=== PATIENT | female | born 1980 | race Caucasian/White ===

== ENCOUNTER → 2019-04-18 08:29 | Outpatient (CLI) | payer OTHER, SELFPAY ==
--- NOTE | ~2019-04-18 | US_ITS ---
EXAMINATION: US abdomen limited DATE: 04/18/2019 08:49 INDICATION: Right upper quadrant abdominal pain. TECHNIQUE: Multiple grayscale and Doppler ultrasound images of the abdomen were obtained. COMPARISON: None FINDINGS: The visualized portions of the head, body, and tail of the pancreas are normal. The liver i s normal without focal lesion. There is normal flow in main portal vein. The gallbladder is normal in size. No gallstones or gallbladder wall thickening. There was no sonographic Solano sign. The common duct is normal and measures 2 mm. IMPRESSION: 1. Normal right upper quadrant ultrasound. Reviewed, dictated and finalized at location A. RE SCHOOL BABYSITTER
== END ==
PROVIDERS: PCP Physician Assistant; Visit Provider Physician Assistant
DX: R10.11 Right upper quadrant pain (principal)
CPT/HCPCS: 76705

== ENCOUNTER 2019-04-23 06:50 | Outpatient (CLI) | payer OTHER, SELFPAY ==
--- NOTE | ~2019-04-23 | NM_ITS ---
EXAMINATION: NM hepatobiliary w pharm EXAM DATE: 04/23/2019 09:11 INDICATION: Right upper quadrant pain. TECHNIQUE: 4.9 mCi Tc-99m mebrofenin (Choletec) was administered intravenously. Scintigraphic images of the abdomen were obtained for one hour. At the 1 hour time point, 1.3 mcg sincalide (Kinevac) was administered by slow intravenous infusion, and imaging was continued for 30 minutes. Gallbladder eje ction fraction was calculated by the technologist. There is no prior study for comparison. FINDINGS: There is normal clearance of radiotracer from the blood pool. There is homogeneous tracer u ptake by the liver. Activity progresses to the gallbladder and bowel. The gallbladder ejection fracti on (GBEF) is 9 % (most patients with gallbladder dysfunction have GBEF < 35%, but there is overlap wi th the normal range of 10-90%). IMPRESSION: Gallbladder ejection fraction 9%, consistent with gallbladder dysfunction and/or chronic cholecystitis. Reviewed, dictated and finalized at location A. TER SUPERVISOR IMPRESSION: Gallbladder ejection fraction 9%, consistent with gallbladder dysfu nction and/or chronic cholecystitis.
== END 2019-04-23 06:51 | disposition home or self-care (01) ==
LOC: ANHIMG 06:54
PROVIDERS: PCP Family Medicine; Visit Provider Physician Assistant
DX: R10.11 Right upper quadrant pain (principal)
CPT/HCPCS: 78227; A9537; J2805

== ENCOUNTER 2019-05-22 09:39 | Outpatient (CLI) | payer OTHER, SELFPAY ==
[2019-05-22 10:16] LABS: Alanine Aminotransferase 8 U/L (4-35); Albumin Level 4.3 g/dL (3.5-5.1); Alkaline Phosphatase 54 U/L (38-126); Amylase 82 U/L (30-110); Aspartate Amino Transferase 18 U/L (14-36); Bilirubin,Total 0.5 mg/dL (0.2-1.3); Lipase 97 U/L (23-300)
== END 2019-05-22 09:40 | disposition home or self-care (01) ==
LOC: ANHSURGERY 09:43
PROVIDERS: PCP Family Medicine; Visit Provider Surgery
DX: Z01.818 Encounter for other preprocedural examination (principal); K81.0 Acute cholecystitis
CPT/HCPCS: 36415; 80076; 82150; 83690; 86850; 86900; 86901

== ENCOUNTER 2019-05-30 00:13 | Day surgery (SDC) | payer OTHER, SELFPAY ==
[2019-05-15 14:46] VITALS: BMI 27.4
[2019-05-30] VITALS (12 sets, daily range): BP systolic 105–118; BP diastolic 70–83; PULSE 64–92; RESP 10–16; TEMP 36.6–37.8; O2SAT 96–100
--- NOTE | 2019-05-30 07:34 | PM.SD ---
Same Day Admit/Disch: HPI History of Present Illness Chief complaint: acalculous chronic cholecystitis Narrative: Opal Perez is a 38 year old female Who has noticed postprandial right upper quadrant and epigastric abdominal pain since March. The pain is severe in does not really seem to relate to any particular type of food. She had an ultrasound in March which was negative. She had a HIDA scan in early April which showed a decreased gallbladder ejection fraction of only 9%. She is taken to surgery now for laparoscopic cholecystectomy for chronic acalculous cholecystitis. FORMERLY [facility], [facility] Past Medical History Medical History Anxiety Surgical History Surgical History History of 2006, 2010, 2013 Family History Family History Mother Diabetes mellitus Depression Hypertension Grandparent Family history of cardiovascular disease Unknown Diabetes mellitus Hypertension Social History Social History Smoking status: Never smoker Alcohol intake: current Substance use: never Same Day Admit/Disch: Med Pre-admit Medications Home Medications Medication Instructions Recorded Confirmed Type hydrocodone-acetaminophen 1 - 2 tablet PO Q6H PRN #7 tablet 05/30/19 Rx ketorolac 10 mg PO Q6H 4 Days #16 tablet 05/30/19 Rx Exam Const: General: comfortable, no acute distress, alert and awake HENMT: Head: normocephalic and atraumatic Mouth: Yes Normal oral and palatal mucosa present Eyes: Conjunctivae: conjunctivae normal Pupils: Equal, round and reactive pupils present EOM: EOMs intact bilaterally Neck: Neck: normal visual inspection, no lymphadenopathy and nontender Resp: Effort & Inspection: normal respiratory effort Auscultation: clear to auscultation bilaterally Cardio: Rate: regular rate Rhythm: regular rhythm Heart sounds: no gallops, no murmurs and no rubs GI: Inspection: non-distended GI Palp: Yes Soft to palpation, No Tenderness to palpation present (GI), No Hepatomegaly present and No Splenomegaly present Auscultation: normal bowel sounds Skin: Lesions: no lesions Rashes: no rashes Neuro: General: no focal motor deficits and CN's II-XI intact bilaterally Cranial nerves: Yes Equal, round and reactive pupils present, Yes Bilaterally intact EOM present, Yes facial symmetry and Yes Midline tongue present Speech: normal speech Motor exam (neuro): 5/5 motor strength present throughout and Motor abnormalities not present Extrem: General: no clubbing, cyanosis or edema and edema Psych: Affect: normal affect Thought process: Normal thought process present Insight: Good insight present (Psych) DS: Summary Time Spent with Patient Time attestation: Total time spent providing and/or coordinating discharge services: DS: Diagnosis Admitting Diagnosis Admitting Diagnosis: Acute cholecystitis Discharge Diagnosis (1) Chronic cholecystitis without calculus: Code(s): K81.1 - Chronic cholecystitis Status: Chronic Assessment and Plan: after discussion, I recommended going ahead with laparoscopic cholecystectomy. The procedure the risks the benefits have been discussed thoroughly. The usual recovery has been discussed. All questions were answered. She understands and agrees to go ahead. Discharge Plan Discharge Patient Disposition: Home, Self-Care Discharge Instructions: 1. May shower the day after surgery over incisions. 2. Call office for: -Wound increasingly painful or bleeding -Vomiting -Fever of greater than 101 degrees 3. Expect some blood on dressing and old blood on skin. 4. If no bowel movement for three days, take 1 oz. (30 ml) Milk of Magnesia, if no results, take Fleets enema. 5. No heavy lifting > 15-20 pound
[2019-05-30] MEDS: LACTATED RINGERS 1,000 ML 30 ML IV CONT ×3 (10:10→15:00)
--- NOTE | 2019-05-30 10:52 | WPDANESEPPF ---
Anes - Initial Pre Proc Eval Procedure: Operation Date: 05/30/19 12:00 Proposed Procedures p Laparoscopic Cholecystectomy - Prosper Haynes MD Date/Time: 05/30/19 10:52 Surgeon: Prosper Haynes MD Pre Op Diagnosis: acalculous chronic cholecystitis Patient Data Age: 38 Gender: F Height: 5 ft 4 in Weight: 73.2 kg Last Vital Signs Temp 37.8 C H 05/30/19 10:32 Pulse 82 05/30/19 10:32 Resp 16 05/30/19 10:32 BP 115/81 05/30/19 10:32 Pulse Ox 100 05/30/19 10:32 Allergies Allergy/AdvReac Type Severity Reaction Status Date / Time No Known Allergies Allergy Mild Verified 05/30/19 09:54 Home Medications Medication Instructions Recorded Confirmed Type No Home Medications 04/17/19 05/30/19 History Patient hx anesthesia problems: post op nausea/vomiting Family hx anesthesia problems: other (diff intubation) PMFSH Past Medical History Medical History Anxiety Surgical History Surgical History History of 2006, 2010, 2013 Family History Family History Mother Diabetes mellitus Depression Hypertension Grandparent Family history of cardiovascular disease Unknown Diabetes mellitus Hypertension Social History Social History Smoking status: Never smoker Alcohol intake: current Substance use: never Anes - Eval Final PreProcedure Day of Procedure 05/30/19 10:52 Patient weight: overweight Heart: regular rate and rhythm Lungs: clear to auscultation Airway: Mallampati scale class 1 Neurological: alert and oriented Last oral intake: >/= 8 hours ASA classification: II Emergent: no Anesthetic plan: proceed Anesthesia type and monitoring: general ETT and standard monitoring Informed Consent: The patient's anesthetic plan and its attendant risks and benefits were discussed with the patient/family/POA. Questions were solicited and answers provided to the satisfaction of the patient/family/POA.
--- NOTE | 2019-05-30 12:00 | SUR.PREOP ---
up to bathroom.
[2019-05-30] MEDS: ceFAZolin 2 GM/D5W 50 ML 2 GM/50 ML BAG IVPB (12:15)
--- NOTE | 2019-05-30 12:27 | P.OP_ITS ---
Procedure Note - Detailed Date of procedure: 05/30/19 Pre-op diagnosis: acalculous chronic cholecystitis Acalculous chronic cholecystitis Post-op diagnosis: same Procedure performed: Laparoscopic cholecystectomy Description of procedure: The patient was taken to surgery and induced into general anesthesia. The abdomen was prepped and draped. Trocars were placed in the usual fashion us ing 0.5% Marcaine with epinephrine and applied Medical optical trocars. A 5 millimeter camera was used. The lateral segment of the left lobe of the liver swung around to the right and obscured our visualization of the cholecysto hepatic triangle. I put an extra 5 mm port in the left mid abdomen so that we could use a blunt retractor and better expose the gallbladder from the medial aspect. The gallbladder was decompressed with a laparoscopic aspirator. The cholecystotomy was closed with a Vicryl endo-loop. The gallbladder was retracted anterosuperiorly. Traction was placed on the infundibulum. The cystic duct and cystic artery were dissected out very clearly. The gallbladder was dissected off the liver at its lower 3rd. Critical view was achieved. We securely clipped and divided the cystic duct and cystic artery. The gallbladder was then further retracted so that the peritoneal attachments to the liver could be divided. Once the gallbladder was freed entirely, it was placed in an Endo- Catch bag and retrieved through the 10 11 epigastric trocar site. The epigastric trocar was then replaced. We reviewed the right upper quadrant. It was irrigated and suctioned. All looked good with no evidence of bleeding or bile leakage. We evacuated CO2 and removed the trocar sleeves. Skin wounds were closed with subcuticular 4 O Monocryl skin suture. The wounds were dressed with Exofin surgical adhesive. Patient was awakened and taken to recovery in good condition. Sponge and needle counts were correct x2. Anesthesia: GETA and local (0.5% Marcaine with epinephrine) Surgeon: Prosper Haynes MD Hiv Prevention Specialist: Yamile BOLDEN Estimated blood loss (mL): 5 Drains: No Packing: No Pathology: yes (Gallbladder) Complications: None Condition: stable Disposition: PACU Findings: Mild chronic inflammation, no stones noted. Gallbladder was pretty much enveloped with the surrounding liver tissue requiring an extra port on the left side to retract the lateral segment of the left lobe of the liver as well as the liver tissue that was enveloping probably 70% of the gallbladder. No biliary ductal dilatation, no liver abnormalities.
[2019-05-30] MEDS: KETOROLAC 30 MG/ML VIAL (*BKC) IV PUSH (12:28)
[2019-05-30] MEDS: BUPIVACAINE/EPINEPHRINE 0.5% 30 ML VIAL INFILTRATE (12:40)
[2019-05-30] MEDS: ONDANSETRON INJ 4 MG/2 ML VIAL IV PUSH (13:38)
[2019-05-30] MEDS: SCOPOLAMINE 1.5 MG PATCH TRANSDERM (13:55)
--- NOTE | 2019-05-30 14:03 | SUR.PHASEI ---
1350; PT TEARFUL. C/O CONTINUED NAUSEA. DR GRIFFIN NOTIFIED. SCOPE PATCH NOT ON PT. PREVIOUSLY ORDERED. DR GRIFFIN STATES TO APPLY SCOPE PATCH AND GIVE IV BENADRYL 25MG NOW.
--- NOTE | 2019-05-30 14:28 | SUR.PHASEI ---
1420; PT SLEEPING. RESP EVEN UNLABORED. PRodrigue D.
--- NOTE | 2019-05-30 15:07 | SUR.PHASEI ---
1500; pt awake and alert. denies pain or nausea.
== END 2019-05-30 16:20 | disposition home or self-care (01) ==
PROVIDERS: PCP Family Medicine; Visit Provider Surgery
PROC: 0FT44ZZ Resection of Gallbladder, Percutaneous Endoscopic Approach (ICD-10-PCS; CPT 47562; principal; 2019-05-30 12:00)
DX: K81.1 Chronic cholecystitis (principal)
CPT/HCPCS: 47562; 88304; A9270; C1713; J0131; J0690; J1100; J1200; J1885; J2250; J2405; J2704; J2710; J3010; J7120

== ENCOUNTER 2021-06-25 14:40 | Emergency (ER) | payer OTHER, SELFPAY ==
[2021-06-25 14:49] VITALS: BP 120/84; PULSE 74; RESP 16; TEMP 36.7; O2SAT 100
--- NOTE | 2021-06-25 14:53 | ED.EAR ---
HPI - Ear Problem General Chief complaint: Ear Stated complaint: Ear Pain Time Seen by Provider: 06/25/21 14:53 Source: patient Mode of arrival: ambulatory Limitations: no limitations History of Present Illness HPI Narrative: 40-year-old female presents with complaint of intermittent ear pain, intermittent headaches around eyes with pressure behind eyes. Reports now having worsening and more consistently of ear pain, worse to left ear. States that she has never had problems with seasonal allergies or sinuses in the past. Denies fever chills. Not taking any [id number] medications to treat her symptoms. All systems reviewed and negative except as noted above. Related Data Allergies Allergy/AdvReac Type Severity Reaction Status Date / Time No Known Allergies Allergy Mild Verified 06/25/21 14:49 Review of Systems Review of Systems: CONSTITUTIONAL: Denies fever, chills, or sweats. EYES: Denies visual changes, redness, or discharge. ENT: Denies rhinorrhea, congestion, sore throat. Reports otalgia. CARDIOVASCULAR: Denies chest pain, palpitations, or edema. RESPIRATORY: Denies cough or dyspnea. GASTROINTESTINAL: Denies abdominal pain, nausea, vomiting, or diarrhea. GENITOURINARY: Denies dysuria or hematuria. SKIN: Denies rash or itching. MUSCULOSKELETAL: Denies back pain, joint pain, or myalgia. NEUROLOGIC: Reports headache. Denies numbness, or weakness. PSYCHIATRIC: Denies anxiety or depression. All other systems reviewed are negative, except as documented in HPI. [facility] Past Medical History Medical History (Updated 06/25/21 @ 15:00 by Cindy Babb NP) Anxiety Carpal tunnel syndrome Dysmenorrhea, unspecified Hemorrhoids, external Peptic ulcer, site unspecified, unspecified as acute or chronic, without hemorrhage or perforation Plantar fascial fibromatosis Radial styloid tenosynovitis Surgical History Surgical History (Updated 07/15/20 @ 09:58 by Carey Crystal MD) History of 2006, 2010, 2014 Hx laparoscopic cholecystectomy 3.12.20 Hx of tubal ligation Family History Family History Mother Diabetes mellitus Depression Hypertension Grandparent Family history of cardiovascular disease Unknown Diabetes mellitus Hypertension Social History Social History Alcohol intake: current Substance use: never Comments At time of signature, agree with nursing past medical, surgical, social and family history. There is no relevant family history pertinent to the presenting complaint. Exam Narrative: GENERAL: This is a well-nourished, well-developed patient, in no apparent distress. HEAD: normocephalic, atraumatic. EYES: PERRL. Sclera clear/white. Vision is grossly intact. EARS: External ears normal, auditory canals clear and without drainage, fluid to both ears, worse to left ear with some yellow purulence. No erythema. No perforation to TMs. NOSE: External nose normal with no obvious nasal discharge, nares without redness, no rhinorrhea. THROAT: Mucous membranes moist, posterior pharynx clear. NECK: Neck supple, non-tender without lymphadenopathy, masses or thyromegaly. CARDIOVASCULAR: Regular rate and rhythm without murmurs, gallops, or rubs. RESPIRATORY: Clear to auscultation. Breath sounds equal bilaterally. No wheezes, rales, or rhonchi. SKIN: warm, Dry, intact with no suspicious lesions or rash, good texture and turgor. NEURO: awake, alert, and oriented to person, place and time. There were no obvious focal neurologic abnormalities. EXTREMITIES: Normal range of motion to all extremities. Course Course Level of Care: Express Care Visit Vital Signs Vital signs: Vital Signs Temperature 36.7 C 06/25/21 14:49 Pulse Rate 74 06/25/21 14:49 Respiratory Rate 16 06/25/21 14:49 Blood Pressure 120/84 06/25/21 14:49 Pulse Oximetry 100 06/25/21 14:49
[2021-06-25 14:58] VITALS: BP 120/84; PULSE 74; RESP 16; TEMP 36.7; O2SAT 100
== END 2021-06-25 15:02 | disposition home or self-care (01) ==
PROVIDERS: Emergency Provider Nurse Practitioner Family; PCP Family Medicine
DX: H65.02 Acute serous otitis media, left ear (principal); J01.90 Acute sinusitis, unspecified
CPT/HCPCS: 99213; G0463

== ENCOUNTER 2022-01-06 13:41 | Outpatient (CLI) | payer OTHER, SELFPAY ==
--- NOTE | ~2022-01-06 | MM_ITS ---
EXAMINATION: MM diagnostic chris BI w vilma HISTORY: Breast pain TECHNIQUE: Additional 3-D tomosynthesis images of the breasts were performed and synthetic 2-D images were generated. CAD analysis was submitted and interpreted. COMPARISON: 01/14/2019 BREAST PARENCHYMAL COMPOSITION: Breast composed of scattered areas of fibroglandular density FINDINGS: There are no suspicious masses, calcifications or architectural distortion in either breast to suggest malignancy. IMPRESSION: 1. No mammographic evidence for malignancy in either breast. 2. Routine yearly screening mammogram and regular clinical breast examination are recommended. BI-RADS Category 1: Negative Reviewed, dictated and finalized at location A. IMPRESSION: 1. No mammographic evidence for malignancy in either breast. 2. Routine yearly screening mammogram and regular clinical breast examination a re recommended. BI-RADS Category 1: Negative
== END 2022-01-06 13:42 | disposition home or self-care (01) ==
PROVIDERS: PCP Family Medicine; Visit Provider Family Medicine
DX: N64.4 Mastodynia (principal)
CPT/HCPCS: 77062; 77066; G0279

== ENCOUNTER 2022-04-23 08:10 | Emergency (ER) | payer OTHER, SELFPAY ==
[2022-04-23 08:15] VITALS: BP 116/79; PULSE 109; RESP 18; TEMP 37.7; O2SAT 100
--- NOTE | 2022-04-23 08:30 | ED.URI ---
HPI - URI/Sore Throat General Chief Complaint: Upper Respiratory Infection Stated Complaint: Sore Throat History of Present Illness HPI Narrative: 41-year-old female presented for complaint of sore throat for 3 days. She also endorses last night onset of sinus congestion, nausea, and body aches, subjective fever. She has taken ibuprofen for symptoms. 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 Denies shortness of breath, wheezing, or dizziness. Related Data Allergies Allergy/AdvReac Type Severity Reaction Status Date / Time No Known Allergies Allergy Mild Verified 12/28/21 13:09 Review of Systems Review of Systems: CONSTITUTIONAL: Denies body aches, fever, chills, or sweats. EYES: Denies visual changes, redness, or discharge. ENT: Reports rhinorrhea, and sore throat. Denies otalgia CARDIOVASCULAR: Denies chest pain, palpitations, or edema. RESPIRATORY: Denies dyspnea. GASTROINTESTINAL: Denies abdominal pain, nausea, vomiting, or diarrhea. SKIN: Denies rash, itching, or wounds. MUSCULOSKELETAL: Denies back pain, joint pain, or myalgia. NEUROLOGIC: Denies headache PMFSH Past Medical History Medical History Anxiety Carpal tunnel syndrome Dysmenorrhea, unspecified Hemorrhoids, external Peptic ulcer, site unspecified, unspecified as acute or chronic, without hemorrhage or perforation Plantar fascial fibromatosis Radial styloid tenosynovitis Surgical History Surgical History History of 2006, 2010, 2013 Hx laparoscopic cholecystectomy 3.12.20 Hx of tubal ligation Family History Family History Mother Diabetes mellitus Depression Hypertension Grandparent Family history of cardiovascular disease Unknown Diabetes mellitus Hypertension Social History Social History Smoking status: Never smoker Alcohol intake: current Substance use: never Living arrangements: with family Occupation/Education: occupation Exam Narrative: GENERAL: Mildly Ill-appearing, no acute distress. EYES: conjunctivae clear ENT: Mucous membranes moist. TMs pearly negrete with normal light reflex bilaterally; no tragal tenderness. Oropharynx erythematous without lesions. Tonsils enlarged2+ and without exudate. No drooling, no hoarseness, no trismus, uvula midline. No tripod positioning, hot potato voice, or soft palate swelling. NECK: Supple. No lymphadenopathy CHEST: Clear to auscultation, breath sounds equal. No respiratory distress, speaks in full sentences. HEART: Regular rate and rhythm. No murmur heard. SKIN: Warm, dry, no rash. NEURO: Alert and oriented x3. Course Course Emergency Course: Patient is aware of diagnosis, understands and agrees to treatment plan. Anticipatory guidance given. Patient agrees to follow-up as directed and is aware of reasons to seek care at the emergency department. Portions of this record may have been created with voice recognition software Level of Care: Express Care Visit MDM - URI/Sore Throat MDM Narrative Medical decision making narrative: strep result reviewed with pt. will send for culture. Patient declined additional testing for viral illness. Advise supportive treatments. Patient is appropriate for outpatient treatment and follow-up. Differential Diagnosis Differential diagnosis: Likely upper respiratory infection, viral infection and pharyngitis Discharge Plan Discharge Clinical Impression: Pharyngitis Qualifiers: Pharyngitis/tonsillitis etiology: unspecified etiology Qualified Code(s): J02.9 - Acute pharyngitis, unspecified Patient Disposition: Home, Self-Care Condition: Stable Instructions: Antibiotic Form, Strep Throat (ED) Additional Instructions: Rapid strep swab was negative tod
== END 2022-04-23 08:40 | disposition home or self-care (01) ==
PROVIDERS: Emergency Provider Nurse Practitioner Family; PCP Family Medicine
DX: J02.9 Acute pharyngitis, unspecified (principal)
CPT/HCPCS: 87081; 87880; 99213; G0463

== ENCOUNTER 2023-03-24 10:06 | Outpatient (CLI) | payer OTHER, SELFPAY ==
--- NOTE | ~2023-03-24 | XR_ITS ---
XR lumbar spine 2-3V DATE: 03/24/2023 10:31 INDICATION: Mid and low back pain. No injury. TECHNIQUE: AP, lateral, coned lateral lumbosacral views COMPARISON: None FINDINGS: Surgical clips, retrocardiac, consistent with cholecystectomy. Included lower thoracic and lumbar pedicles are intact. No fracture or bone destruction or spondyloli sthesis. There is moderate loss of interspace height at L4-5. The remaining lumbar and lumbosacral interspaces appear well preserved. The sacral iliac joints are intact. IMPRESSION: Moderate loss of height at L4-5 interspace Reviewed, dictated and finalized at location B. WORKING MACHINE FEEDER
--- NOTE | ~2023-03-24 | XR_ITS ---
EXAMINATION: XR thoracic spine 3V DATE: 03/24/2023 14:38 INDICATION: Back pain. TECHNIQUE: 3 views of thoracic spine were obtained. COMPARISON: None. FINDINGS: Bone alignment is normal. Vertebral body heights are normal. There is mildly decreased disc height at multiple levels in mid thoracic spine. There are endplate osteophytes at many levels. Surg ical clips in the right upper quadrant are likely from cholecystectomy. IMPRESSION: 1. Mild thoracic spondylosis. Reviewed, dictated and finalized at location E. OR PYTHON DEVELOPER
--- NOTE | ~2023-03-24 | XR_ITS ---
XR_CERV2-3V_CR DATE: 03/24/2023 10:31 INDICATION: Neck pain TECHNIQUE: AP, open-mouth, lateral and swimmer views COMPARISON: 08/19/2015 cervical spine FINDINGS: C1 and C2 are normally aligned and the odontoid process is intact. No fracture or dislocati on or locked facet is detected. No prevertebral soft tissue swelling. There is mild loss of disc space height at C5-6 and C6-7. IMPRESSION: Mild cervical spondylosis Reviewed, dictated and finalized at Location A. Reviewed, dictated and finalized at location B. H MACHINE OPERATOR IMPRESSION: Mild cervical spondylosis
== END 2023-03-24 10:07 | disposition home or self-care (01) ==
PROVIDERS: Visit Provider Physician Assistant
DX: M43.05 Spondylolysis, thoracolumbar region (principal); M43.02 Spondylolysis, cervical region; R29.890 Loss of height
CPT/HCPCS: 72040; 72072; 72100

== ENCOUNTER 2023-04-24 15:19 | Outpatient (CLI) | payer OTHER, SELFPAY ==
--- NOTE | ~2023-04-24 | MR_ITS ---
EXAMINATION: MR lumbar spine wo con DATE: 04/24/2023 15:52 INDICATION: Low back pain without improvement with physical therapy TECHNIQUE: Magnetic resonance imaging (MRI) of the lumbar spine was performed without intravenous con trast. Sequences included sagittal T2-weighted FSE, sagittal T2-weighted FS FSE, sagittal T1-weighted FSE, and axial T2-weighted FSE. COMPARISON: None FINDINGS: 2 mm retrolisthesis L4 on L5. Vertebral body heights are normal. T1 hyperintense hemangioma at L5. Ot herwise normal marrow signal. Mild disc height loss, disc desiccation and annular fissure at L4-L5. R emaining discs demonstrate normal height and signal. The conus medullaris terminates at L1. There is normal signal in the caudal spinal cord. Paravertebral soft tissues are unremarkable. The following d isc levels are specifically discussed: T12-L1: The disc does not extend beyond the endplate margin. There is mild bilateral facet joint oste oarthritis. There is no neural foraminal stenosis. There is no central canal stenosis. L1-L2: The disc does not extend beyond the endplate margin. There is mild left facet joint osteoarthr itis. There is no neural foraminal stenosis. There is no central canal stenosis. L2-L3: Disc is minimally bulging. There is no facet joint osteoarthritis. There is no neural foramina l stenosis. There is no central canal stenosis. L3-L4: Disc is mildly bulging. There is minimal left facet joint osteoarthritis. There is left and mi nimal right neural foraminal stenosis. There is no central canal stenosis. L4-L5: Disc is mildly bulging with annular fissure and small left subarticular zone disc extrusion wi th disc material extending up to 5 mm caudal to the level of the superior endplate of L5. This result s in moderate narrowing of the left lateral recess with the extrusion exerting mild mass effect upon the traversing left L5 nerve root. There is mild left facet joint osteoarthritis. There is mild bilat eral neural foraminal stenosis. There is mild central canal stenosis. L5-S1: The disc does not extend beyond the endplate margin. There is mild bilateral facet joint osteo arthritis. There is no neural foraminal stenosis. There is no central canal stenosis. IMPRESSION: 1. Mild spondylosis at L4-L5 with left subarticular zone disc extrusion exerting mass effect upon the traversing left L5 nerve root. Correlate clinically for left-sided muscle weakness of great toe exte nsion and sensory change of the medial foot and great toe. Otherwise minimal lumbar spondylosis. Reviewed, dictated and finalized at location A. ICAL TRAINER IMPRESSION: 1. Mild spondylosis at L4-L5 with left subarticular zone disc extrusion exertin g mass effect upon the traversing left L5 nerve root. Correlate clinically for left-sided muscle weakness of great toe extension and sensory change of the med ial foot and great toe. Otherwise minimal lumbar spondylosis.
== END 2023-04-24 15:20 ==
LOC: MICIMG 15:20
PROVIDERS: PCP Nurse Practitioner Family; Visit Provider Nurse Practitioner Family
DX: M47.896 Other spondylosis, lumbar region (principal); M51.26 Other intervertebral disc displacement, lumbar region
CPT/HCPCS: 72148

== ENCOUNTER 2023-11-13 15:15 | Outpatient (CLI) | payer OTHER, SELFPAY ==
[2023-11-13 15:48] LABS: Hemoglobin 8.4 g/dL (12.0-15.0); Mean Corpuscular Hemoglobin 23.1 pg (26-34); Mean Corpuscular Volume 79.7 fl (80-100); Mean Platelet Volume 10.2 fl (7.4-10.4); Platelet Count Result 286 k/mm3 (150-375); Red Blood Count 3.64 M/mm3 (4.2-5.4); Red Cell Distribution Width 15.4 % (11.5-14.5); White Blood Count 5.6 K/mm3 (4.5-10.0)
[2023-11-13 18:32] LABS: Free T4 Free Thyroxine 1.03 ng/mL (0.78-2.19)
[2023-11-16 03:15] LABS: FSH 5.5 mIU/mL; LH 17.4 mIU/mL; Prolactin 15.3 ng/mL
== END 2023-11-13 15:16 | disposition home or self-care (01) ==
LOC: ANHLAB 15:17
PROVIDERS: PCP Family Medicine; Visit Provider Nurse Practitioner Family
DX: N92.4 Excessive bleeding in the premenopausal period (principal)
CPT/HCPCS: 36415; 83001; 83002; 84146; 84439; 84443; 85027

== ENCOUNTER 2023-12-22 14:57 | Outpatient (CLI) | payer SELFPAY ==
[2023-12-22 15:13] LABS: Basophils Percent Auto 0.5 % (0.2-1.2); Eosinophils Percent Auto 0.7 % (0-4.4); Hematocrit 33.9 % (37.0-47.0); Hemoglobin 10.5 g/dL (12.0-15.0); Immature Granulocyte Absolute 0.01 K/mm3 (0.00-0.031); Immature Granulocyte Percent A 0.2 % (0-0.5); Lymphocytes Absolute Auto 1.65 K/mm3 (0.9-3.2); Lymphocytes Percent Auto 29.4 % (18.3-44.2); Mean Corpuscular Hemoglobin 25.8 pg (26-34); Mean Corpuscular Volume 83.3 fl (80-100); Monocytes Absolute Auto 0.4 K/mm3 (0.1-0.6); Monocytes Percent Auto 7.7 % (2.6-8.5); Neutrophils Absolute Auto 3.5 K/mm3 (1.3-6.7); Neutrophils Percent Auto 61.5 % (45.5-73.1); Platelet Count Result 262 k/mm3 (150-375); Red Blood Count 4.07 M/mm3 (4.2-5.4); Red Cell Distribution Width 19.1 % (11.5-14.5); White Blood Count 5.6 K/mm3 (4.5-10.0)
== END 2023-12-22 14:58 | disposition home or self-care (01) ==
PROVIDERS: PCP Family Medicine; Visit Provider Obstetrics & Gynecology
DX: N92.4 Excessive bleeding in the premenopausal period (principal); N92.0 Excessive and frequent menstruation with regular cycle
CPT/HCPCS: 36415; 85025

== ENCOUNTER 2024-09-27 08:41 | Outpatient (CLI) | payer OTHER, SELFPAY ==
--- OUTSIDE RECORDS SUMMARY | 2024-09-27 08:43 | XMS_ITS | Clinical Summary ---
Author Organization [facility] Address [address] [place] [phone] Phone Care Team Providers Care Technical Solutions Director Name Role Phone Carey Crystal MD Primary Care Provider [phone] Allergies No known active allergies Medications HYDROcodone-acetami nophen (NORCO) 5-325 mg tabletIndications:H erniated intervertebral disc of lumbar spine Take 1 Tablet by mouth every 6 hours as needed for Pain, Severe. 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 Gender Identity Not on file Sexual Orientation Not on file Last Filed Vital Signs Vital Sign Reading Time Taken Comments Blood Pressure 142/98 04/11/2023 1:00 PM PAINTING DEPARTMENT SUPERVISOR Pulse - - Temperature 36.8 C (98.3 F) 04/11/2023 9:52 AM PAINTING DEPARTMENT SUPERVISOR Respiratory Rate 17 04/11/2023 1:00 PM PAINTING DEPARTMENT SUPERVISOR Oxygen Saturation 98% 04/11/2023 1:00 PM PAINTING DEPARTMENT SUPERVISOR Inhaled Oxygen Concentration - - Weight 90.7 kg (200 lb) 04/11/2023 9:52 AM PAINTING DEPARTMENT SUPERVISOR Height 162.6 cm (5' 4) 04/11/2023 9:52 AM PAINTING DEPARTMENT SUPERVISOR Body Mass Index 34.33 04/11/2023 9:52 AM PAINTING DEPARTMENT SUPERVISOR Plan of Treatment Health Maintenance Due Date Last Done Comments DTAP/TDAP/TD VACCINES (1 - Tdap) 2000 HEPATITIS B VACCINES (1 of 3 - 19+ 3-dose series) 2000 HPV/Cotest (21-29) 2002 CERVICAL CANCER SCREENING 11/01/2011 HPV/Cotest (30-65) 11/01/2011 PAP SMEAR 11/01/2011 BREAST CANCER SCREENING 2021 INFLUENZA VACCINE (#1) 2024 HPV VACCINES Aged Out No longer eligi ble based on patient's age to complete this topic Insurance [employer] Care Teams Technical Solutions Director Relationship Specialty Start Date End Date Carey Crystal MD [facility] [address] [phone] PCP - General Family Practice 04/11/23
--- OUTSIDE RECORDS SUMMARY | 2024-09-27 08:43 | XMS_ITS | Clinical Summary ---
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 Gender Identity Not on file Sexual Orientation Not on file Plan of Treatment Health Maintenance Due Date Last Done Comments Hepatitis C Virus (HCV) Screening 1981 TdaP Immunization 1981 Hepatitis B Immunization (1 of 3 - 19+ 3-dose series) 2000 Pap Smear 2002 Cervical Cancer Screening (CCS) 11/01/2011 HPV/Cotest 11/01/2011 Discussion re Starting/Frequ ency of Mammograms 2021 Influenza Immunization (#1) 2023 SARS-COV-2 Immunization ( season) 2023 Respiratory Syncytial Virus (RSV) Immunization (Adult) (1 - 1-dose 75+ series) 2056 Meningococcal Immunization (ACWY) Aged Out No longer eligible based on patient's age to complete this topic Pneumococcal Immunization Combined Aged Out No longer eligible based on patient's age to complete this topic Rotavirus Immunization Aged Out No lo nger eligible based on patient's age to complete this topic
[2024-09-27 11:54] LABS: Hematocrit 40.2 % (37.0-47.0); Hemoglobin 13.0 g/dL (12.0-15.0); Immature Granulocyte Percent A 0.2 % (0-0.5); Lymphocytes Absolute Auto 1.26 K/mm3 (0.9-3.2); Mean Corpuscular HGB Conc 32.3 g/dl (32-36); Mean Corpuscular Hemoglobin 29.7 pg (26-34); Mean Corpuscular Volume 91.8 fl (80-100); Nucleated Red Blood Cells Absolute Auto 0.000 K/mm3 (0.0-0.012); Nucleated Red Blood Cells Perc 0.0 % (0.0-0.2); Platelet Count Result 277 k/mm3 (150-375); Red Blood Count 4.38 M/mm3 (4.2-5.4); White Blood Count 4.3 K/mm3 (4.5-10.0)
[2024-09-27 12:08] LABS: Alanine Aminotransferase 10 U/L (6-35); Albumin Level 4.4 g/dL (3.5-5.1); Alkaline Phosphatase 75 U/L (38-126); Anion Gap 10 mmol/L (4-12); Aspartate Amino Transferase 40 U/L (14-36); Bilirubin,Total 0.6 mg/dL (0.2-1.3); Blood Urea Nitrogen 17 mg/dL (7-17); Calcium 8.9 mg/dL (8.4-10.2); Carbon Dioxide 24 mmol/L (22-30); Chloride 104 mmol/L (98-107); Cholesterol 196 mg/dL (0-200); Estimated Glomerular Filt Rate 57; Glucose 103 mg/dL (65-110); HDL Direct 54 mg/dL; Potassium 4.4 mmol/L (3.4-5.0); Sodium 138 mmol/L (137-145); Total Protein 8.1 g/dL (6.3-8.2); Triglycerides 60 mg/dL (<150)
[2024-09-27 13:18] LABS: Thyroid Stimulating Hormone 2.160 uIU/mL (0.465-4.680)
== END 2024-09-27 08:42 | disposition home or self-care (01) ==
LOC: ANHGOSHLAB 08:41
PROVIDERS: PCP Family Medicine; Visit Provider Nurse Practitioner Family
DX: F41.9 Anxiety disorder, unspecified (principal); F32.9 Major depressive disorder, single episode, unspecified; E66.9 Obesity, unspecified; Z68.30 Body mass index [BMI] 30.0-30.9, adult; D64.9 Anemia, unspecified
CPT/HCPCS: 36415; 80053; 80061; 82306; 84443; 85025